=== PATIENT | female | born 2000 | race Caucasian/White ===

== ENCOUNTER 2023-05-18 13:47 | Outpatient (REF) | payer OTHER, MEDICAID, SELFPAY ==
--- NOTE | ~2023-05-18 | XR_ITS ---
EXAMINATION: XR HAND, LEFT CLINICAL INFORMATION: Order states left hand 2 weeks of pain after medial hand injury during wrestling COMPARISON: None available. TECHNIQUE: PA, lateral, and oblique views of the left hand. FINDINGS: The bone mineralization is normal. The joint spaces are preserved. No displaced fracture. XR/XR hand LT min 3V IMPRESSION: No displaced fracture. Recommend follow-up imaging in 10-14 days if fracture is suspected.
== END 2023-05-18 13:48 | disposition home or self-care (01) ==
LOC: HO.HHCX 13:47
PROVIDERS: Visit Provider Internal Medicine Geriatric Medicine
DX: M79.642 Pain in left hand (principal)
CPT/HCPCS: 73130

== ENCOUNTER 2025-02-14 08:56 | Outpatient (REF) | payer OTHER, MEDICAID, SELFPAY ==
--- NOTE | ~2025-02-14 | XR_ITS ---
EXAMINATION: XR CLAVICLE, LEFT CLINICAL INFORMATION: pain after wrestling manuver COMPARISON: None available. TECHNIQUE: Straight AP and cephalad angulated AP views of the left clavicle. FINDINGS: The clavicle is intact. The bones and soft tissues are normal. No fracture. Acromioclavicular joint alignment is anatomic. XR/XR clavicle LT IMPRESSION: Normal left clavicle. Electronically signed by: Aki Rose MD 02/14/2025 09:27 AM EDT
== END 2025-02-14 08:57 | disposition home or self-care (01) ==
LOC: HO.HHCX 08:56
PROVIDERS: PCP Family Medicine; Visit Provider Internal Medicine
DX: S49.92XA Unspecified injury of left shoulder and upper arm, initial encounter (principal)
CPT/HCPCS: 73000

== ENCOUNTER → 2025-02-14 09:06 | Outpatient (BNV) | payer OTHER, MEDICAID, SELFPAY | PROVIDERS: PCP Family Medicine; Visit Provider Radiology Diagnostic Radiology | DX: M25.512 Pain in left shoulder (principal) | CPT/HCPCS: 73000 ==